=== PATIENT | female | born 1975 | race Caucasian/White ===

== ENCOUNTER 2017-03-17 13:09 | Day surgery (SDC) | payer OTHER ==
[~2017-03-17] VITALS: Ht 154.9 cm; Wt 65.3 kg
[~2017-03-17 13:09] MED LIST: ALLOPURINOL PO; NEXIUM 40MG40 MG PO; UROCIT-K 5540 MG/TAB PO; ZANTAC 150150 MG PO
[2017-03-17 14:04] VITALS: BP 117/60; PULSE 67; TEMP 98.1
[2017-03-17] MEDS ORDERED: MITIGARE0.6 MG PO (14:13)
[2017-03-17] MEDS ORDERED: ZYLOPRIM 300MG300 MG PO (14:14)
[2017-03-17] MEDS ORDERED: GLUCOPHAGE1000 MG PO (14:14)
[2017-03-17] MEDS ORDERED: CELEXA 20MG20 MG/TAB PO (14:14)
[2017-03-17] MEDS ORDERED: ALDACTONE 25MG25 M1 PO (14:14)
[2017-03-17] MEDS ORDERED: XANAX .25M0.25 MG/TA PO (14:15)
[2017-03-17 18:10] VITALS: BP 115/71; PULSE 72; TEMP 98.8
[2017-03-17 18:25] VITALS: BP 116/73; PULSE 67
[2017-03-17 18:40] VITALS: BP 126/71; PULSE 77
== END 2017-03-17 19:00 | disposition home or self-care (01) ==
LOC: SDCO 13:09
DX: N20.2 Calculus of kidney with calculus of ureter (principal); K21.9 Gastro-esophageal reflux disease without esophagitis; J45.909 Unspecified asthma, uncomplicated; E78.5 Hyperlipidemia, unspecified; G43.909 Migraine, unspecified, not intractable, without status migrainosus; E28.2 Polycystic ovarian syndrome; Z90.710 Acquired absence of both cervix and uterus; Z85.828 Personal history of other malignant neoplasm of skin; Z87.891 Personal history of nicotine dependence; Z80.9 Family history of malignant neoplasm, unspecified; Z82.49 Family history of ischemic heart disease and other diseases of the circulatory system; Z84.1 Family history of disorders of kidney and ureter
CPT/HCPCS: C1769; C2617; J0690; J2405; J2704; J3010; J7120; Q9967

== ENCOUNTER 2018-06-08 12:32 | Day surgery (SDC) | payer OTHER ==
[~2018-06-08] VITALS: Ht 157.5 cm; Wt 67.2 kg
[~2018-06-08 12:32] MED LIST changes: +ALDACTONE 25MG25 M1 PO; +CELEXA 20MG20 MG/TAB PO; +GLUCOPHAGE1000 MG PO; +MITIGARE0.6 MG PO; +XANAX .25M0.25 MG/TA PO; +ZYLOPRIM 300MG300 MG PO
[2018-06-08 13:29] VITALS: BP 119/74; PULSE 69; TEMP 98.4
[2018-06-08] MEDS ORDERED: PREMARIN 0.60.625 M1 PO (13:42)
[2018-06-08] MEDS ORDERED: HCTZ 25MG TAB25 MG PO (13:42)
[2018-06-08] MEDS ORDERED: PERCOCET 325 MG1 TA2 PO (13:43)
[2018-06-08 18:02] VITALS: TEMP 97.9
[2018-06-08 18:35] VITALS: BP 124/83; PULSE 80
[2018-06-08 19:07] VITALS: BP 120/85; PULSE 82
== END 2018-06-08 19:51 | disposition home or self-care (01) ==
LOC: SDCO 12:32
DX: N20.2 Calculus of kidney with calculus of ureter (principal); Q61.5 Medullary cystic kidney; K21.9 Gastro-esophageal reflux disease without esophagitis; E28.2 Polycystic ovarian syndrome; E78.5 Hyperlipidemia, unspecified; Z87.442 Personal history of urinary calculi; M10.9 Gout, unspecified; F41.9 Anxiety disorder, unspecified; J68.3 Other acute and subacute respiratory conditions due to chemicals, gases, fumes and vapors; K46.9 Unspecified abdominal hernia without obstruction or gangrene; Z79.899 Other long term (current) drug therapy; Z87.891 Personal history of nicotine dependence
CPT/HCPCS: C1769; C2617; J0690; J1100; J2405; J2704; J2765; J3010; J7120

== ENCOUNTER 2018-08-26 12:14 | Day surgery (SDC) | payer OTHER ==
[~2018-08-26] VITALS: Ht 157.5 cm; Wt 67.3 kg
[~2018-08-26 12:14] MED LIST changes: +HCTZ 25MG TAB25 MG PO; +PERCOCET 325 MG1 TA2 PO; +PREMARIN 0.60.625 M1 PO
[2018-08-26 12:36] VITALS: BP 113/74; PULSE 81; TEMP 98.4
[2018-08-26] MEDS ORDERED: AMITIZA24 MCG PO (13:05)
[2018-08-26 16:05] VITALS: BP 115/72; PULSE 78; TEMP 98.3
[2018-08-26 16:20] VITALS: BP 110/70; PULSE 75
[2018-08-26 16:35] VITALS: BP 112/65; PULSE 72
[2018-08-26 16:50] VITALS: BP 108/70; PULSE 73
== END 2018-08-26 17:13 | disposition home or self-care (01) ==
LOC: SDCO 12:14
DX: N20.0 Calculus of kidney (principal); Z87.442 Personal history of urinary calculi; K21.9 Gastro-esophageal reflux disease without esophagitis; K44.9 Diaphragmatic hernia without obstruction or gangrene; M10.9 Gout, unspecified; E78.5 Hyperlipidemia, unspecified; Q61.5 Medullary cystic kidney; Z87.891 Personal history of nicotine dependence; Z79.899 Other long term (current) drug therapy; J45.909 Unspecified asthma, uncomplicated; F41.9 Anxiety disorder, unspecified; E28.2 Polycystic ovarian syndrome
CPT/HCPCS: C1769; J0690; J1100; J2250; J2405; J2704; J3010; J7030; J7120